=== PATIENT | male | born 1935 | race Caucasian/White ===

== ENCOUNTER 2024-08-27 13:21 | Emergency (ER) | payer MEDICARE, OTHER ==
[~2024-08-27] VITALS: Ht 180.3 cm; Wt 55.9 kg
[~2024-08-27 13:21] MED LIST: ASPIR-LOW81 MG PO; MVI
[2024-08-27 13:27] VITALS: TEMP 97.6
[2024-08-27] MEDS ORDERED: ANUSOL HC CREAM30 GM TP (18:24)
[2024-08-27 18:38] VITALS: BP 118/73; PULSE 74
== END 2024-08-27 18:38 | disposition home or self-care (01) ==
LOC: COL.ER 13:21
DX: K59.00 Constipation, unspecified (principal)